=== PATIENT | male | born 1955 | race Caucasian/White ===

== ENCOUNTER 2020-05-30 17:57 | Observation (INO) | payer MEDICARE, MEDICAID, SELFPAY ==
--- NOTE | ~2020-05-30 | CT_ITS ---
EXAMINATION: CT brain wo con EXAM DATE: 05/30/2020 19:10 INDICATION: Seizure TECHNIQUE: Spiral CT of the head was performed without contrast. Axial, coronal and sagittal images were reviewed. The dose-length product (DLP) for this examination was 681.00 mGy-cm. The exposure w as tailored according to patient size, and iterative reconstruction (ASIR) was used as additional dos e reduction technique. There is no prior study for comparison. FINDINGS: There is no acute intraparenchymal hemorrhage. No evidence of intraparenchymal brain mass lesion. No evidence of acute infarction. Please note that initial head CT has limited sensitivity f or small or acute infarctions. There is small old left cerebellar infarction. Small old left centrum semiovale infarction. There is mild to moderate periventricular and subcortical hypodensity, nonspe cific but probably related to small vessel ischemic disease. There is mild to moderate prominence o f the sulci and ventricles related to cerebral atrophy. There is intracranial carotid arteriosclero sis. There are no extra-axial collections. There is no mass effect or midline shift. The orbits ar e unremarkable. Soft tissue is unremarkable. The visualized sinuses and mastoid air cells are well aerated. IMPRESSION: 1. Small old left cerebral white matter, left cerebellar infarctions. 2. Chronic age related findings. Reviewed, dictated and finalized at location A.
--- NOTE | ~2020-05-30 | XR_ITS ---
EXAMINATION: XR chest 1V portable EXAM DATE: 05/30/2020 19:15 INDICATION: Seizure, transient alteration of awareness. TECHNIQUE: Portable AP frontal chest x-ray was obtained. There is no prior study for comparison. FINDINGS: The cardiomediastinal silhouette is prominent but magnified on this AP technique. There is pulmonary vascular congestion. No confluent consolidation, pneumothorax or pleural effusion suspected . Right humeral head fracture. IMPRESSION: Cardiomegaly, pulmonary vascular congestion. Reviewed, dictated and finalized at location A.
--- NOTE | ~2020-05-30 | CT_ITS ---
EXAMINATION: CT shoulder RT wo con DATE: 05/31/2020 10:52 INDICATION: Right humeral head fracture. TECHNIQUE: Computed tomography (CT) of the right shoulder was performed without intravenous contrast. Automated exposure control and iterative reconstruction technique were employed. The dose-length pro duct was 638.09 mGy-cm. COMPARISON: Right shoulder radiographs 05/30/2020 FINDINGS: There is posterior dislocation of humeral head with respect to glenoid. There is a comminut ed fracture of humeral head including displaced fracture fragments of the lesser tuberosity and a joby p impaction fracture of the anteromedial humeral head (reverse Hill-Sachs fracture). The posterior ma rgin of the glenoid sits within the reverse Hill-Sachs fracture. There are marginal osteophytes of th e glenoid humeral joint. There is moderate acromioclavicular joint osteoarthritis. There is a lipohem arthrosis in glenohumeral joint. There are small pleural effusions. IMPRESSION: 1. Posterior shoulder dislocation with comminuted fracture of humeral head. Reviewed, dictated and finalized at location A.
--- NOTE | ~2020-05-30 | XR_ITS ---
EXAMINATION: XR shoulder RT min 2V EXAM DATE: 05/30/2020 19:14 INDICATION: Initial encounter following injury, with pain of the right shoulder. Fall. Seizure. TECHNIQUE: Frontal, Y projections of the right shoulder. There is no prior study for comparison. FINDINGS: There is acute comminuted closed posttraumatic right humeral head fracture, probably an im paction type injury against the glenoid. Possible nondisplaced glenoid fracture as well. There is no humeral dislocation. There is moderate acromioclavicular joint primary osteoarthritis. IMPRESSION: 1. Acute right humeral head fracture along articular surface. 2. Possible acute nondisplaced glenoid fracture. Reviewed, dictated and finalized at location A.
[2020-05-30 18:11] VITALS: BP 118/48; PULSE 143; RESP 23; TEMP 35.7; O2SAT 98
--- NOTE | 2020-05-30 18:12 | ED.GENADULT ---
HPI - General Adult General Chief complaint: Seizure Stated complaint: SEIZURE Source: patient, family and EMS History of Present Illness HPI narrative: Patient is a 65 y/o male brought in by EMS for seizure. Sister states that she was with the patient at a restaurant when his seizure occurred. She states that he swung his right arm and he was shaking. This lasted approximately 10 minutes. There is no known alleviating or exacerbating factor. EMS was called. When they arrived, patient appeared post-ictal. However, patient had another episode of seizure during transport. Patient is post-ictal currently and unable to provide additional history. According his sister, patient has history of seizure and his neurologist is Dr. Mckee. Related Data Allergies Allergy/AdvReac Type Severity Reaction Status Date / Time No Known Allergies Allergy Verified 05/30/20 18:24 Review of Systems Review of Systems: ROS unobtainable: Yes unobtainable due to medical condition [facility] Social History Social History Gender identity (if verbalized by the patient): Male Exam Const: General: no acute distress and well developed Orientation/consciousness: confusion HENMT: Head: normocephalic Ears: external ears normal General nose exam: Normal external nose present Eyes: General: appearance normal, both eyes and all related structures Conjunctivae: conjunctivae normal Neck: Neck: normal visual inspection and full ROM Chest: Chest palpation & inspection: normal inspection of the chest and no tenderness Resp: Effort & Inspection: normal respiratory effort Auscultation: clear to auscultation bilaterally Cardio: Rate: regular rate Rhythm: regular rhythm GI: GI Palp: No abdominal tenderness and Yes Soft to palpation Skin: General skin exam: normal color and turgor normal Neuro: General: confusion Cognition (Neuro): abnormal cognition Other: does not answer questions or follow commands, moves all 4 extremities, right shoulder movement decreased, likely due to fracture Extrem: General: normal to inspection and no pedal edema Right upper extremity: shoulder/upper arm tenderness and abnormal ROM Psych: Appearance: grossly normal Mental Status: other (confused and agitated) Speech and movement: Psychomotor agitation in speech present Affect: Labile affect present and Anxious affect present Course Consultations Consultation #1: Discussed with Dr. Cronin (neurology), who recommend administering Keppra and order MRI for tomorrow. Date: 05/30/20 Time: 20:05 Consultation #2: Discussed with Dr. Kern, who agrees to admit. Date: 05/30/20 Time: 20:50 Consultation #3: Discussed with Dr. Waite ([facility]), he states that patient can follow up with him in office after discharge. Date: 05/30/20 Time: 21:24 Vital Signs Vital signs: Vital Signs Temperature 35.7 C L 05/30/20 18:11 Pulse Rate 143 H 05/30/20 18:11 Respiratory Rate 23 H 05/30/20 18:11 Blood Pressure 118/48 L 05/30/20 18:11 Pulse Oximetry 98 05/30/20 18:11 Temperature 35.7 C L 05/30/20 18:11 Pulse Rate 93 05/30/20 21:30 Respiratory Rate 20 05/30/20 21:30 Blood Pressure 123/71 05/30/20 21:30 Pulse Oximetry 94 05/30/20 21:30 Medical Decision Making Differential Diagnosis Differential Diagnosis: Leukocytosis and lactic acidosis is noted. This is likely due to seizure and stress. Patient has no sign of infection at this time to suggest sepsis. Will give IVF and repeat lactic. Will defer decision for need for antibiotics to hospitalist. Vital Signs Vital Signs: Vital Signs Temperature 35.7 C L 05/30/20 18:11 Pulse Rate 143 H 05/30/20 18:11 Respiratory Rate 23 H 05/30/20 18:11 Blood Pressure 118/48 L 05/30/20 18:11 Pulse Oximetry 98 05/30/20 18:11 Temperature 35.7 C L 05/30/20 18:11 Pulse Rate 93 05/30/20 21:30 Respiratory Rate 20 05/30/20 21:30 Blood Pressure 123/71 05/30/20 21:
[2020-05-30 18:21] LABS: Basophils Absolute Auto 0.1 K/mm3 (0.0-0.1); Basophils Percent Auto 0.6 % (0.2-1.2); Eosinophils Absolute Auto 0.3 K/mm3 (0-0.3); Eosinophils Percent Auto 1.2 % (0-4.4); Hematocrit 53.6 % (42.0-52.0); Hemoglobin 17.4 g/dL (14.0-18.0); Immature Granulocyte Absolute 1.18 K/mm3 (0.00-0.031); Immature Granulocyte Percent A 5.8 % (0-0.5); Lymphocytes Absolute Auto 6.65 K/mm3 (0.9-3.2); Lymphocytes Percent Auto 32.6 % (18.3-44.2); Mean Corpuscular HGB Conc 32.5 g/dl (32-36); Mean Corpuscular Hemoglobin 31.1 pg (26-34); Mean Corpuscular Volume 95.9 fl (80-100); Mean Platelet Volume 10.1 fl (7.4-10.4); Monocytes Absolute Auto 1.7 K/mm3 (0.1-0.6); Monocytes Percent Auto 8.3 % (2.6-8.5); Neutrophils Absolute Auto 10.5 K/mm3 (1.3-6.7); Neutrophils Percent Auto 51.5 % (45.5-73.1); Nucleated Red Blood Cells Perc 0.1 % (0.0-0.2); Platelet Count Result 260 k/mm3 (150-375); Red Blood Count 5.59 M/mm3 (4.6-6.20); Red Cell Distribution Width 11.5 % (11.5-14.5); White Blood Count 20.4 K/mm3 (4.5-10.0)
[2020-05-30] MEDS: fentaNYL CITRATE INJ (*CRX) 100 MCG/2 ML VIAL 50 MCG IV PUSH ×2 (18:22→21:47)
[2020-05-30] MEDS: LORazepam INJ (*CRX) 2 MG/ML VIAL IV PUSH ×3 (18:23→19:42)
[2020-05-30 18:33] LABS: Albumin Level 4.7 g/dL (3.5-5.1); Alkaline Phosphatase 107 U/L (38-126); Anion Gap 33 mmol/L (8-16); Aspartate Amino Transferase 38 U/L (17-59); Bilirubin,Total 0.4 mg/dL (0.2-1.3); Blood Urea Nitrogen 5 mg/dL (9-20); Carbon Dioxide 10 mmol/L (22-30); Chloride 93 mmol/L (98-107); Estimated Glomerular Filt Rate 43; Glucose 186 mg/dL (75-110); Potassium 3.5 mmol/L (3.4-5.0); Sodium 136 mmol/L (137-145)
--- NOTE | 2020-05-30 18:36 | ECG_ITS ---
Measurements Intervals [place] Rate: 92 P: 42 ND: 188 QRS: -20 QRSD: 103 T: 31 QT: 360 QTc: 447 Interpretive Statements SINUS RHYTHM LOW QRS VOLTAGE IN PRECORDIAL LEADS VOLTAGE CRITERIA FOR LVH BORDERLINE T WAVE ABNORMALITY- ANT/INF LEADS BASELINE ARTIFACT- I, II, III, AVR, AVF, V4-V6 BORDERLINE ECG Electronically Signed On 05-30-2020 20:43:25 CDT by Russell Sim D.O.
[2020-05-30 18:40] LABS: Alanine Aminotransferase 24 U/L (4-50)
--- NOTE | 2020-05-30 18:49 | PC.NURSE ---
Pt taken to CT scan.
[2020-05-30] MEDS: SODIUM CHLORIDE 0.9% IV 1,000 ML 999 ML IV CONT (19:14)
[2020-05-30 19:40] VITALS: BP 116/56; PULSE 97; RESP 22; O2SAT 92
[2020-05-30 19:50] LABS: Lactic Acid Reflex 10.3 mmol/L (0.7-2.1)
[2020-05-30 19:50] LABS: Add Urine Microscopic? NO; Appearance Urine Clear (Clear); Bacteria Urine Trace /hpf; Bilirubin Urine Negative (Negative); Blood Urine Negative (Negative); Color Urine Yellow (Yellow); Glucose Urine UA Negative (Negative); Ketones Urine Negative (Negative); Leukocyte Esterase Ur Negative LEU/UL (Negative); Mucus Urine Rare /lpf; Nitrate Urine Negative (Negative); Protein Urine Negative (Negative); Specific Grav Ur 1.008 (1.001-1.035); Urobilinogen Urine Negative mg/dL (<2.0)
[2020-05-30 19:51] LABS: NT Pro B Type Natriuretic Pept 36 PG/ML (5-100)
[2020-05-30 19:58] LABS: Alveolar/Arterial O2 Gradient 137.3 mmHg; Base Excess ABG -14.1 mEq/l (+/-2.0); Fractional Inspired Oxygen 28 %; HCO3 ABG 10.7 mEq/l (22.0-26.0); Oxyhemoglobin 61.1 % THb (90.0-100.0); PO2 FiO2 Ratio Arterial Blood 1.26 %; Total Hemoglobin 11.6 g/dL (12.0-18.0)
[2020-05-30 20:00] LABS: PCO2 ABG 22.9 mmHg (35.0-45.0); PO2 ABG 35.3 mmHg (80.0-100.0); pH ABG 7.288 (7.350-7.450)
[2020-05-30 20:01] LABS: Device NASAL CANNULA; Modified Allen's Test Pass; Oxygen Saturation ABG 62.5 % (95.0-100.0); Site Drawn RIGHT RADIAL
[2020-05-30] MEDS: levETIRAcetam 1000MG/NACL100ML 1,000 MG/100 ML BAG 400 MG IVPB (20:38)
[2020-05-30 20:40] VITALS: BP 130/66; PULSE 91; RESP 18; O2SAT 94
--- NOTE | 2020-05-30 20:50 | PM.IMHP ---
H&P: HPI History of Present Illness Date/Time: 05/30/20 20:50 Chief complaint: seizure Narrative: Gilmer Quinones is a 65 year old male with history of seizure disorder since childhood. History provided by sister who is his wind turbine mechanic. Last 3-5 days mini staring seizures increasing in frequency. Tonight he went to a restaurant with his sister and he had a big seizure grand mal. Last seizure like this was [address] Mckee. This year there were medication changes, previously was following Dr. Livingston. Patient started living with his sister over the past year because of worsening memory, and family has been told he has early sign of dementia. He was on phenobarbital and dilantin in the past for seizures and sister is not sure why there were changed. Home meds: Levetiracetam 750mg BID for seizures memantine 10mg BID for dementia meloxicam 10mg daily for arthritis in hands tamsulosin 0.4mg daily for BPH In the ED: he was found to have seizure and post-ictal. He has recieved 7mg Ativan for seizure then agitation. lactic acid elevated at 10.3. Keppra level ordered. 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 shoulder x-ray shows acute communited closed post-traumatic fracture of right humeral head, also possible glenoid fracture nondisplaced. Chest x-ray shows cardiomegaly and pulmonary vascular congestion. Patient admitted for observation for seizures. Review of Systems Review of Systems: ROS unobtainable: Yes unobtainable due to mental status PMFSH Past Medical History Medical History (Updated 05/30/20 @ 23:13 by Ephraim Trotter DO) BPH (benign prostatic hyperplasia) Dementia Osteoarthritis Seizure Surgical History Surgical History (Updated 05/30/20 @ 22:34 by Ephraim Trotter DO) H/O hemorrhoidectomy Family History Family History (Updated 05/30/20 @ 22:35 by Ephraim Trotter DO) Father , Emphysema No problems noted. Mother , old age No problems noted. Social History Social History (Updated 05/30/20 @ 22:37 by Ephraim Trotter DO) Smoking status: Never smoker Alcohol intake: never Substance use: never Living arrangements: with family Additional living arrangements comments: Lives with sister since this past year since getting dementia Occupation/Education: other Additional occupation/education comments: Disability Gender identity (if verbalized by the patient): Male Meds Home Medications and Allergies Home Medications Medication Instructions Recorded Confirmed Type levetiracetam 750 mg PO BID 05/30/20 05/30/20 History meloxicam 15 mg PO DAILY 05/30/20 05/30/20 History memantine 10 mg PO BID 05/30/20 05/30/20 History tamsulosin 0.4 mg PO DAILY 05/30/20 05/30/20 History Allergies Allergy/AdvReac Type Severity Reaction Status Date / Time Penicillins AdvReac Unknown childhood Unverified 05/30/20 22:38 allergy Vital Signs Vital Signs - 24 hr 05/30/20 18:11 Temperature 35.7 C L Pulse Rate 143 H Respiratory Rate 23 H Blood Pressure 118/48 L Pulse Oximetry 98 Exam Narrative: Exam Narrative: - GENERAL: Sleeping comfortably elderly man, arousable. - EYES: EOMI. Anicteric. - HENT: Moist mucous membranes. - LUNGS: Clear to auscultation bilaterally, no wheezing, rhonchi, or rales. breathing comfortably on room air. - CARDIOVASCULAR: Regular rate and rhythm. No murmur. No JVD. - ABDOMEN: Soft, non-tender and non-distended. No palpable masses. - EXTREMITIES: No edema. Peripheral pulses 2+. Non-tender. - NEUROLOGIC: unable to assess clinical symptoms - PSYCHIATRIC: unable to assess, postictal - SKIN: No rashes or lesions. Warm. - LYMPH: No cervical lymphadenopathy. H&P: Results Labs Labs: Short CBC 05/30/20 Range/Units 18:16 WBC 20.4 H (4.5-10.0) K/mm3 Hgb 17.4 (14.0-18.0) g/dL Hct 53.6 H (42.0-52.0) % Plt Count 260 (150-375) k/mm3 BMP
--- NOTE | 2020-05-30 20:55 | PC.NURSE ---
Patient belongings home with family
[2020-05-30 21:30] VITALS: BP 123/71; PULSE 93; RESP 20; O2SAT 94
[2020-05-30 22:00] VITALS: BP 136/69; PULSE 91; RESP 18; TEMP 35.9; O2SAT 93
[2020-05-30 22:35] LABS: Reflex Lactic Acid Yes or No Add Lactic
[2020-05-30] MEDS: SODIUM CHLORIDE 0.9% IV 1,000 ML 150 ML IV CONT (23:17)
[2020-05-30 23:45] VITALS: PULSE 89
[2020-05-31] VITALS (17 sets, daily range): BP systolic 120–166; BP diastolic 69–83; PULSE 77–102; RESP 18–20; TEMP 35.9–36.8; O2SAT 93–97
[2020-05-31] MEDS: MORPHINE SULFATE (*CRX) 2 MG/ML INJ IV PUSH ×4 (00:58→22:30)
[2020-05-31] MEDS: LORazepam INJ (*CRX) 2 MG/ML VIAL 1 MG IV PUSH ×2 (03:15→10:14)
[2020-05-31] MEDS: SODIUM CHLORIDE 0.9% IV 1,000 ML 150 ML IV CONT ×3 (05:45→20:41)
[2020-05-31 06:55] LABS: Anion Gap 9 mmol/L (8-16); Blood Urea Nitrogen 6 mg/dL (9-20); Carbon Dioxide 22 mmol/L (22-30); Chloride 101 mmol/L (98-107); Estimated Glomerular Filt Rate > 60; Glucose 115 mg/dL (75-110); Magnesium 2.2 mg/dL (1.6-2.3); Potassium 3.6 mmol/L (3.4-5.0); Sodium 132 mmol/L (137-145)
[2020-05-31 07:06] LABS: Hematocrit 38.3 % (42.0-52.0); Hemoglobin 13.8 g/dL (14.0-18.0); Mean Corpuscular Hemoglobin 31.2 pg (26-34); Mean Corpuscular Volume 86.5 fl (80-100); Mean Platelet Volume 10.1 fl (7.4-10.4); Platelet Count Result 156 k/mm3 (150-375); Red Blood Count 4.43 M/mm3 (4.6-6.20); Red Cell Distribution Width 11.4 % (11.5-14.5); White Blood Count 13.4 K/mm3 (4.5-10.0)
[2020-05-31] MEDS: HEPARIN SODIUM 5,000 UNITS/ML VIAL 5000 UNITS SUB-Q ×2 (09:58→20:41)
--- NOTE | 2020-05-31 10:48 | WPDNEURCNPN ---
Assessment and Plan Assessment and plan (1) Osteoarthritis: Code(s): M19.90 - Unspecified osteoarthritis, unspecified site Status: Acute (2) BPH (benign prostatic hyperplasia): Code(s): N40.0 - Benign prostatic hyperplasia without lower urinary tract symptoms Status: Acute (3) Dementia: Code(s): F03.90 - Unspecified dementia without behavioral disturbance Status: Acute (4) Seizure: Code(s): R56.9 - Unspecified convulsions Status: Acute (5) Fracture of head of right humerus: Qualifiers: Encounter type: initial encounter Fracture type: closed Qualified Code(s): S42.291A - Other displaced fracture of upper end of right humerus, initial encounter for closed fracture Code(s): S42.291A - Other displaced fracture of upper end of right humerus, initial encounter for closed fracture Status: Acute Additional Plan continue the seizure medication also he will need evaluation for the shoulder Consult date: 05/31/20 Time Seen: 10:45 HPI: Gilmer Quinones is a 65 year old male admitted to the hospital to the emergency room with history of recurrence of the seizure 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 Zaman previously he was being followed by us in [facility] he is also experiencing increasing memory dysfunction has been taking phenobarbital and Dilantin in the past but recent medications include levetiracetam 750 twice a day and memantine 10 mg twice a day meloxicam 10 mg daily and tamsulosin 0.4 mg daily in the emergency room he received 7 mg of Ativan his evaluation documented the lactic acid of 10.3 CT of the head unremarkable except the old left cerebellar infarct x-ray of the left shoulder documented right humeral head fracture and chest x-ray with cardiomegaly Review of Systems Review of Systems: All systems reviewed & are unremarkable except as noted in HPI and below PMFSH Past Medical History Medical History (Updated 05/30/20 @ 23:13 by Ephraim Trotter DO) BPH (benign prostatic hyperplasia) Dementia Osteoarthritis Seizure Surgical History Surgical History (Updated 05/30/20 @ 22:34 by Ephraim Trotter DO) H/O hemorrhoidectomy Family History Family History (Updated 05/30/20 @ 22:35 by Ephraim Trotter DO) Father , Emphysema No problems noted. Mother , old age No problems noted. Social History Social History (Updated 05/30/20 @ 22:37 by Ephraim Trotter DO) Smoking status: Unknown if ever smoked Alcohol intake: unknown Substance use: unknown Living arrangements: with family Additional living arrangements comments: Lives with sister since this past year since getting dementia Occupation/Education: other Additional occupation/education comments: Disability Gender identity (if verbalized by the patient): Male Meds Home Medications and Allergies Home Medications Medication Instructions Recorded Confirmed Type levetiracetam 750 mg PO BID 05/30/20 05/30/20 History meloxicam 15 mg PO DAILY 05/30/20 05/30/20 History memantine 10 mg PO BID 05/30/20 05/30/20 History tamsulosin 0.4 mg PO DAILY 05/30/20 05/30/20 History Allergies Allergy/AdvReac Type Severity Reaction Status Date / Time Penicillins AdvReac Unknown childhood Unverified 05/30/20 22:38 allergy Vital Signs Vital Signs - 24 hr 05/30/20 18:11 05/30/20 19:40 05/30/20 20:40 Temperature 35.7 C L Pulse Rate 143 H 97 91 Respiratory Rate 23 H 22 H 18 Blood Pressure 118/48 L 116/56 L 130/66 Pulse Oximetry 98 92 94 05/30/20 21:30 05/30/20 22:00 05/30/20 23:45 Temperature 35.9 C L Pulse Rate 93 91 89 Respiratory Rate 20 18 Blood Pressure 123/71 136/69 Pulse Oximetry
[2020-05-31] MEDS: MEMANTINE 10 MG TABLET PO ×2 (12:41→17:42)
[2020-05-31] MEDS: TAMSULOSIN HCL 0.4 MG CAPSULE PO (12:41)
[2020-05-31 13:54] LABS: Lactic Acid Reflex 2.8 mmol/L (0.7-2.1)
--- NOTE | 2020-05-31 14:07 | PM.IMPN ---
Progress Note: A&P Assessment and Plan (1) Seizure: Code(s): R56.9 - Unspecified convulsions Status: Acute Assessment and Plan: -history of seizures from childhood, discussed with sister Mrs. Charles. patient previously was on Dilantin and phenobarbital. This episode appears to be grand mal seizure. -patient is on Keppra at home, checking Keppra level to make sure his level is adequate -he is not on any other medications that would cause lowering of the seizure threshold -will consult neurology on-call to help with seizure medication management -primary neurologist is Dr. Mckee -IV Keppra loaded in the ED -p.r.n. Ativan as needed for seizures, patient received Ativan in the ED -seizure precautions 05/31/20 14:07 patient is 65-year-old male with history of seizures since childhood patient had been seen by Dr. Cronin in the and had been treated with dilantin and phenobarbital and recently patient is seen by different neurologist and being treated with Keppra 750 b.i.d. and memantine 10 mg twice a day for his memory loss, apparently patient was with his sister who is his caregiver is restaurant yesterday evening while there patient had a grand mal seizure and apparently he injured his right shoulder, patient was brought to the emergency depart he was loaded with IV Keppra, patient is seen by Dr. Cronin and agrees with current management will continue, Ct scan of right shoulder showed Posterior shoulder dislocation with comminuted fracture of humeral head. patient right arm is immobilized with sling patient will be seen by orthopedic and further recommendation to follow. (2) Lactic acidosis: Code(s): E87.2 - Acidosis Status: Acute Assessment and Plan: -likely secondary to seizure -no fevers, no other sign of infection, no antibiotics indicated at this time, lungs are clear no sign of aspiration -will recheck lactic acid after IV fluid hydration, lactic acid now is 2.8 (3) Fracture of head of right humerus: Qualifiers: Encounter type: initial encounter Fracture type: closed Qualified Code(s): S42.291A - Other displaced fracture of upper end of right humerus, initial encounter for closed fracture Code(s): S42.291A - Other displaced fracture of upper end of right humerus, initial encounter for closed fracture Status: Acute Assessment and Plan: -traumatic fracture of right humerus -reviewed x-ray imaging, will have orthopedic surgeon consult -if any procedure needs to be done, will need to contact sister Mrs Charles. (4) Osteoarthritis: Code(s): M19.90 - Unspecified osteoarthritis, unspecified site Status: Acute Assessment and Plan: holding home meloxicam, will restart when lactic acid resolved (5) BPH (benign prostatic hyperplasia): Code(s): N40.0 - Benign prostatic hyperplasia without lower urinary tract symptoms Status: Acute Assessment and Plan: will continue home tamsulosin (6) Dementia: Code(s): F03.90 - Unspecified dementia without behavioral disturbance Status: Acute Assessment and Plan: will continue home memantine Subjective Date/time seen: 05/31/20 14:07 patient is 65-year-old male with history of seizures since childhood patient had been seen by Dr. Cronin in the and had been treated with dilantin and phenobarbital and recently patient is seen by different neurologist and being treated with Keppra 750 b.i.d. and memantine 10 mg twice a day for his memory loss, apparently patient was with his sister who is his caregiver is restaurant yesterday evening while there patient had a grand mal seizure and apparently he injured his right shoulder, patient was brought to the emergency depart he was loaded with IV Keppra, patient is seen by Dr. Cronin and agrees with current management will continue, Ct scan of right shoulder showed Posterior shoulder dislocation with comminuted fracture of humeral head.
--- NOTE | 2020-05-31 15:19 | PM.CNOR ---
Assessment and Plan Assessment and plan (1) Fracture of head of right humerus: Qualifiers: Encounter type: initial encounter Fracture type: closed Qualified Code(s): S42.291A - Other displaced fracture of upper end of right humerus, initial encounter for closed fracture Code(s): S42.291A - Other displaced fracture of upper end of right humerus, initial encounter for closed fracture Status: Acute Assessment and Plan: Notified of patient and condition with right shoulder from emergency room May 30, 2020. Patient admitted for seizure disorder and metabolic abnormality. Radiographs and CT scan reviewed. Comminuted fracture of the right humeral head. Continue with sling. Patient may follow up in orthopedic office as outpatient. History of Present Illness HPI Consult date: 05/31/20 Chief complaint: seizure PMFSH Past Medical History Medical History (Updated 05/30/20 @ 23:13 by Ephraim Trotter DO) BPH (benign prostatic hyperplasia) Dementia Osteoarthritis Seizure Surgical History Surgical History (Updated 05/30/20 @ 22:34 by Ephraim Trotter DO) H/O hemorrhoidectomy Family History Family History (Updated 05/30/20 @ 22:35 by Ephraim Trotter DO) Father , Emphysema No problems noted. Mother , old age No problems noted. Social History Social History (Updated 05/30/20 @ 22:37 by Ephraim Trotter DO) Smoking status: Unknown if ever smoked Alcohol intake: unknown Substance use: unknown Living arrangements: with family Additional living arrangements comments: Lives with sister since this past year since getting dementia Occupation/Education: other Additional occupation/education comments: Disability Gender identity (if verbalized by the patient): Male Meds Home Medications and Allergies Home Medications Medication Instructions Recorded Confirmed Type levetiracetam 750 mg PO BID 05/30/20 05/30/20 History meloxicam 15 mg PO DAILY 05/30/20 05/30/20 History memantine 10 mg PO BID 05/30/20 05/30/20 History tamsulosin 0.4 mg PO DAILY 05/30/20 05/30/20 History Allergies Allergy/AdvReac Type Severity Reaction Status Date / Time Penicillins AdvReac Unknown childhood Unverified 05/30/20 22:38 allergy Vital Signs Vital Signs - 24 hr 05/30/20 18:11 05/30/20 19:40 05/30/20 20:40 Temperature 96.3 F L Pulse Rate 143 H 97 91 Respiratory Rate 23 H 22 H 18 Blood Pressure 118/48 L 116/56 L 130/66 Pulse Oximetry 98 92 94 05/30/20 21:30 05/30/20 22:00 05/30/20 23:45 Temperature 96.7 F L Pulse Rate 93 91 89 Respiratory Rate 20 18 Blood Pressure 123/71 136/69 Pulse Oximetry 94 93 05/31/20 00:00 05/31/20 02:00 05/31/20 03:21 Temperature 96.7 F L Pulse Rate 91 91 80 Respiratory Rate 18 18 Blood Pressure 120/69 Pulse Oximetry 93 96 05/31/20 04:00 05/31/20 06:00 05/31/20 08:00 Temperature Pulse Rate 80 84 88 Respiratory Rate 18 Blood Pressure Pulse Oximetry 96 05/31/20 08:32 05/31/20 10:00 05/31/20 12:34 Temperature 97.9 F 97.4 F L Pulse Rate 80 86 87 Respiratory Rate 18 20 Blood Pressure 128/73 143/74 H Pulse Oximetry 97 97 Results Labs Result Diagrams: 05/31/20 06:36 05/31/20 06:36 Labs: Abnormal lab results 05/30/20 05/30/20 05/30/20 Range/Units 18:16 18:16 19:31 WBC 20.4 H (4.5-10.0) K/mm3 RBC (4.6-6.20) M/mm3 Hgb (14.0-18.0) g/dL Hct 53.6 H (42.0-52.0) % RDW (11.5-14.5) % Immature Gran % (Auto) 5.8 H (0-0.5) % Lymph # (Auto) 6.65 H (0.9-3.2) K/mm3 [place] # (Auto) 1.7 H (0.1-0.6) K/mm3 Abs Immat Gran (auto) 1.18 H (0.00-0.031) K/mm3 Absolute Neuts (auto) 10.5 H (1.3-6.7) K/mm3 ABG pH (7.350-7.450) ABG pCO2 (35.0-45.0) mmHg ABG pO2 (80.0-100.0) mmHg ABG HCO3 (22.0-26.0) mEq/l ABG O2 Saturation (95.0-100.0) % ABG O2
[2020-05-31 16:40] LABS: Reflex Lactic Acid Yes or No Add Lactic
[2020-05-31 17:49] LABS: Lactic Acid 3.1 mmol/L (0.7-2.1)
[2020-06-01] VITALS (9 sets, daily range): BP systolic 135–162; BP diastolic 65–81; PULSE 77–94; RESP 18–22; TEMP 36.2–36.6; O2SAT 95–97
[2020-06-01 05:06] LABS: Alanine Aminotransferase 53 U/L (4-50); Albumin Level 3.2 g/dL (3.5-5.1); Alkaline Phosphatase 67 U/L (38-126); Aspartate Amino Transferase 206 U/L (17-59); Bilirubin,Total 0.8 mg/dL (0.2-1.3); Blood Urea Nitrogen 7 mg/dL (9-20); Calcium 8.1 mg/dL (8.4-10.2); Carbon Dioxide 27 mmol/L (22-30); Chloride 103 mmol/L (98-107); Estimated Glomerular Filt Rate > 60; Glucose 109 mg/dL (75-110); Potassium 3.5 mmol/L (3.4-5.0)
[2020-06-01 05:24] LABS: Anion Gap 4 mmol/L (8-16); Sodium 134 mmol/L (137-145)
[2020-06-01] MEDS: HEPARIN SODIUM 5,000 UNITS/ML VIAL 5000 UNITS SUB-Q (08:20)
[2020-06-01] MEDS: TAMSULOSIN HCL 0.4 MG CAPSULE PO (08:20)
[2020-06-01] MEDS: MEMANTINE 10 MG TABLET PO (08:20)
[2020-06-01] MEDS: SODIUM CHLORIDE 0.9% IV 1,000 ML 150 ML IV CONT (09:33)
--- NOTE | 2020-06-01 12:59 | PM.DS ---
DS: Admitting Diagnosis Admitting Diagnosis Admitting Diagnosis: seizure DS: Discharge Diagnosis Discharge Diagnosis (1) Seizure: Code(s): R56.9 - Unspecified convulsions Status: Acute Assessment and Plan: -history of seizures from childhood, discussed with sister Mrs. Charles. patient previously was on Dilantin and phenobarbital. This episode appears to be grand mal seizure. -patient is on Keppra at home, checking Keppra level to make sure his level is adequate -he is not on any other medications that would cause lowering of the seizure threshold -will consult neurology on-call to help with seizure medication management -primary neurologist is Dr. Mckee -KARELY Keppra loaded in the ED -p.r.n. Ativan as needed for seizures, patient received Ativan in the ED -seizure precautions - as per previous notes - Pt is well known to DR Cronin, pt can follow with him. Pt remains seizure free in the hospital, pt is stable for discharge from neurology point of view. (2) Lactic acidosis: Code(s): E87.2 - Acidosis Status: Acute Assessment and Plan: -likely secondary to seizure -no fevers, no other sign of infection, improved on fluid hydration (3) Fracture of head of right humerus: Qualifiers: Encounter type: initial encounter Fracture type: closed Qualified Code(s): S42.291A - Other displaced fracture of upper end of right humerus, initial encounter for closed fracture Code(s): S42.291A - Other displaced fracture of upper end of right humerus, initial encounter for closed fracture Status: Acute Assessment and Plan: -traumatic fracture of right humerus -reviewed x-ray imaging, will have orthopedic surgeon consult -pt seen by DR Waite pt can follow with him in his clinic (4) Osteoarthritis: Code(s): M19.90 - Unspecified osteoarthritis, unspecified site Status: Acute Assessment and Plan: -Ok to restart medication on dischrage (5) BPH (benign prostatic hyperplasia): Code(s): N40.0 - Benign prostatic hyperplasia without lower urinary tract symptoms Status: Acute Assessment and Plan: -can continue home tamsulosin (6) Dementia: Code(s): F03.90 - Unspecified dementia without behavioral disturbance Status: Acute Assessment and Plan: - can ccontinue home memantine DS: Summary Time Spent with Patient Time attestation: Total time spent providing and/or coordinating discharge services:40 minutes on day of dischrage Exam Narrative: Exam Narrative: Patient is comfortable HEENT: eyes are clear and none icteric LUNGS:Clear HEART: RR S1S2 ABD: BS+, Soft and nontender Lower extremities: no edema MS: right arm in the brace Neuro: grossly intact. DS: Data Data Completed and Pending Labs on day of discharge: Labs from last 24 hours 06/01/20 05/31/20 05/31/20 04:24 17:30 13:26 Sodium 134 L Potassium 3.5 Chloride 103 Carbon Dioxide 27 Anion Gap 4 L BUN 7 L Creatinine 1.10 Estim Creat Clear Calc Not Reportable Estimated GFR > 60 Glucose 109 Lactic Acid 3.1 H 2.8 H Calcium 8.1 L Total Bilirubin 0.8 AST 206 H ALT 53 H Alkaline Phosphatase 67 Total Protein 6.0 L Albumin 3.2 L Preliminary micro results at discharge 05/30/20 19:31 Blood Culture - Preliminary Blood 05/30/20 19:31 Blood Culture - Preliminary Blood Discharge Plan Discharge Attending physician on discharge: Kassidy Worrell Consulting providers: John Cronin ; Celestino Waite Discharging Clinician: Kassidy Worrell Anticipated Discharge Date/Time: 06/01/20 12:57 Patient Disposition: Home, Self-Care Activity: as tolerated Diet: regular Discharge Instructions: Comminuted fracture of the right humeral head. Continue with sling. Patient may follow up in orthopedic office as outpatient. Patient Instructions: Levetiracetam (By mouth) Stand
[2020-06-04 05:31] LABS: Levetiracetam Keppra <1.0 mcg/mL (12.0-46.0)
[2020-06-07 12:37] LABS: Prolactin 55.3 ng/mL (***)
== END 2020-06-01 14:43 | disposition home or self-care (01) ==
LOC: ANHED 21:18 → ANHIMU 21:50
PROVIDERS: Family Medicine; Admitting Provider Student in an Organized Health Care Education/Training Program; Emergency Provider Emergency Medicine; PCP Internal Medicine; Visit Provider Family Medicine
DX: R56.9 Unspecified convulsions (principal); S42.291A Other displaced fracture of upper end of right humerus, initial encounter for closed fracture; E87.2 Acidosis; F03.90 Unspecified dementia, unspecified severity, without behavioral disturbance, psychotic disturbance, mood disturbance, and anxiety; M19.90 Unspecified osteoarthritis, unspecified site; N40.0 Benign prostatic hyperplasia without lower urinary tract symptoms; X58.XXXA Exposure to other specified factors, initial encounter; I51.7 Cardiomegaly; R09.89 Other specified symptoms and signs involving the circulatory and respiratory systems
CPT/HCPCS: 36415; 36600; 51701; 70450; 71045; 73030; 73200; 80048; 80053; 80177; 81003; 82805; 83605; 83735; 83880; 84146; 85025; 85027; 87040; 93005; 96360; 96361; 96365; 96372; 96374; 96375; 96376; 97162; 99285; A9270; G0378; J1644; J1953; J2060; J2270; J3010; J7030; J7120

== ENCOUNTER 2020-08-22 13:35 | Outpatient (CLI) | payer MEDICARE, SELFPAY ==
--- NOTE | ~2020-08-22 | US_ITS ---
EXAMINATION: US arterial ankle brachial ind DATE: 08/22/2020 13:59 INDICATION: Peripheral arterial disease. TECHNIQUE: Segmental pressures and plethysmographic and Doppler waveforms of the brachial and lower e xtremity arteries were obtained. COMPARISON: None. FINDINGS: Right and left brachial artery pressures of 112 mm Hg and 127 mm Hg, respectively, are concordant (no rmal difference <= 30 mmHg). The right ankle-brachial index (TAISHA) could not be measured due to inability to cuff-occlude the arter ies (normal >= 0.9-1.0). The right great toe-brachial index (TBI) is 0.56 (normal >= 0.65). Arterial Doppler waveforms are biphasic at the ankle. The left TAISHA could not be measured due to inability to cuff-occlude the arteries. The left TBI is 0.6 0. Arterial Doppler waveforms are at least biphasic at the ankle. IMPRESSION: 1. Mildly decreased TBIs and nondiagnostic ABIs, consistent with arterial occlusive disease. Reviewed, dictated and finalized at location A. [facility] E[facility]ECT[facility] PERSON IMPRESSION: 1. Mildly decreased TBIs and nondiagnostic ABIs, consistent with arterial occlu sive disease.
== END 2020-08-22 13:36 | disposition home or self-care (01) ==
PROVIDERS: PCP Internal Medicine; Visit Provider Internal Medicine
DX: I73.9 Peripheral vascular disease, unspecified (principal)
CPT/HCPCS: 93922